=== PATIENT | male | born 1955 | race Caucasian/White ===

== ENCOUNTER 2020-01-30 01:10 | Inpatient (IN) ==
[2020-01-30 04:10] LABS: Basophils % 0.6 %; Hematocrit 36.5 % (37.5-50.1); Hemoglobin 12.3 g/dL (12.9-16.9); Lymphocytes # 2.1 K/mcL (0.6-4.6); Mean Corpuscular HGB Conc 33.7 g/dL (31.6-35.5); Mean Corpuscular Hemoglobin 30.4 pg (28.0-33.3); Mean Corpuscular Volume 90.1 fL (83.0-100.0); Mean Platelet Volume 10.2 fL (9.4-12.4); Monocytes # 0.5 K/mcL (0.0-1.3); Monocytes % 7.1 %; Neutrophils # 4.5 K/mcL (1.6-8.9); Platelet Count 200 K/mcL (140-400); Red Blood Count 4.05 M/mcL (4.19-5.50); Red Cell Distribution Width 16.5 % (11.5-14.5); Segmented Neutrophils % 62.3 %; White Blood Count 7.2 K/mcL (4.3-11.1)
[2020-01-30 04:12] LABS: ABG Base Excess -2 mEq/L (-2 to 3); ABG HCO3 20 mEq/L (21-27); ABG Oxygen Saturation 96 % (95-98); ABG PCO2 26 mmHg (35-45); ABG PO2 73 mmHg (85-104); ABG TCO2 21 mEq/L (20-26)
[2020-01-30 04:29] LABS: BUN/Creatinine Ratio 34 (6-26); Blood Urea Nitrogen 34 mg/dL (8-23); Calcium 9.5 mg/dL (8.6-10.3); Carbon Dioxide 21 mEq/L (23-29); Chloride 100 mEq/L (98-107); Glucose 95 mg/dL (70-105); Osmolality,Calculated 283 (280-300); Potassium 4.4 mEq/L (3.5-5.1); Sodium 133 mEq/L (136-145); Troponin I < 0.03 ng/mL (< 0.04); eGFR For African Americans > 60 (> 60); eGFR For Non-African Americans > 60 (> 60)
[2020-01-30 04:45] LABS: INR 3.7; Prothrombin Time 41.6 Seconds (9.4-12.1)
[2020-01-30] MEDS ORDERED: Furosemide 20 MG/2 ML VIAL IVP ONE (06:03)
[2020-01-30] MEDS ORDERED: ALPRAZolam 0.25 MG TABLET PO ONE ×2 (08:30→15:09)
[2020-01-30] MEDS ORDERED: Ipratropium/Albuterol Neb 3 ML IH PRN ×2 (10:23→10:35)
[2020-01-30] MEDS ORDERED: Nitroglycerin 0.4 MG TAB.SUBL SL PRN (10:35)
[2020-01-30] MEDS: Budesonide/Formoterol 160/4.5 1 PUFF INH IH SCH ×2 (11:45→22:13)
[2020-01-30] MEDS: *HR* Digoxin 0.125 MG TABLET PO SCH (11:47)
[2020-01-30] MEDS: Apixaban 5 MG TABLET PO SCH ×2 (11:49→20:49)
[2020-01-30] MEDS ORDERED: Isovue-370 500 ML BOTTLE IVP ONE (16:49)
[2020-01-30] MEDS ORDERED: Furosemide 40 MG/4 ML VIAL IVP ONE (17:33)
[2020-01-31 07:36] LABS: Basophils # 0.1 K/mcL (0.0-0.2); Basophils % 0.9 %; Eosinophils # 0.1 K/mcL (0.0-0.6); Eosinophils % 0.6 %; Hematocrit 35.9 % (37.5-50.1); Hemoglobin 11.8 g/dL (12.9-16.9); Immature Granulocytes % 0.1 % (0-4); Lymphocytes # 2.4 K/mcL (0.6-4.6); Lymphocytes % 29.5 %; Mean Corpuscular HGB Conc 32.9 g/dL (31.6-35.5); Mean Corpuscular Hemoglobin 29.9 pg (28.0-33.3); Mean Corpuscular Volume 90.9 fL (83.0-100.0); Mean Platelet Volume 10.5 fL (9.4-12.4); Monocytes # 0.7 K/mcL (0.0-1.3); Monocytes % 8.3 %; Neutrophils # 4.9 K/mcL (1.6-8.9); Nucleated Red Blood Cells 0.2 /100 WBC (0); Platelet Count 195 K/mcL (140-400); Red Blood Count 3.95 M/mcL (4.19-5.50); Red Cell Distribution Width 16.7 % (11.5-14.5); Segmented Neutrophils % 60.6 %
[2020-01-31 07:54] LABS: BUN/Creatinine Ratio 30 (6-26); Blood Urea Nitrogen 29 mg/dL (8-23); Carbon Dioxide 26 mEq/L (23-29); Chloride 101 mEq/L (98-107); Glucose 86 mg/dL (70-105); Osmolality,Calculated 287 (280-300); Potassium 4.2 mEq/L (3.5-5.1); Sodium 136 mEq/L (136-145); eGFR For African Americans > 60 (> 60); eGFR For Non-African Americans > 60 (> 60)
[2020-01-31] MEDS: Apixaban 5 MG TABLET PO SCH (08:00)
[2020-01-31] MEDS: *HR* Digoxin 0.125 MG TABLET PO SCH (08:00)
[2020-01-31] MEDS ORDERED: Furosemide 20 MG/2 ML VIAL IVP SCH (08:00)
[2020-01-31] MEDS ORDERED: Aspirin Enteric Coated 81 MG Tablet PO SCH (09:00)
[2020-01-31] MEDS: Budesonide/Formoterol 160/4.5 1 PUFF INH IH SCH (09:27)
[2020-01-31 10:08] VITALS: BP 100/67
[2020-01-31] MEDS ORDERED: Tiotropium 18 MCG inhalation IH SCH (10:56)
== END 2020-01-31 16:10 | disposition home or self-care (01) | DRG 292 ==
LOC: INPPIK 01:10 → EMEROOPIK 01:10 → INPPIK 06:36
PROVIDERS: ADMIT Internal Medicine; ATTEND Internal Medicine